=== PATIENT | male | born 1985 | race Caucasian/White ===

== ENCOUNTER 2024-05-09 19:44 | Emergency (ER) | payer BC, MEDICAID, SELFPAY ==
[2024-05-09 19:52] VITALS: BP 155/96; PULSE 92; RESP 18; TEMP 37; O2SAT 99
[2024-05-09] MEDS: TETANUS,DIPHTHERIA,AC PERTUSSIS ADULT (0.5 ML) BOOSTRIX IM (20:12)
--- NOTE | 2024-05-09 20:13 | ED.GENADULT ---
HPI - General Adult General Chief complaint: Wound/Laceration Stated complaint: Laceration to Fingers Source: patient Mode of arrival: ambulatory Limitations: no limitations History of Present Illness HPI narrative: Patient presents for evaluation of laceration to the 4th digit of left hand that occurred yesterday around 0800. He accidentally cut himself with a serrated knife. Bleeding is now controlled. He is primarily right-handed. He is not diabetic. No fever, chills, nausea, vomiting, purulence from the affected area. He came in today for an assessment of the wound. He is not up-to-date on tetanus. Reports minimal pain in the affected area. Related Data Allergies Allergy/AdvReac Type Severity Reaction Status Date / Time codeine Allergy Intermediate Verified 02/24/12 13:23 No Known Allergies Allergy Unverified 03/15/14 17:06 Review of Systems Review of Systems: CONSTITUTIONAL: Denies fever, chills, or sweats. EYES: Denies visual changes, redness, or discharge. ENT: Denies rhinorrhea, congestion, sore throat, or otalgia. CARDIOVASCULAR: Denies chest pain, palpitations, or edema. RESPIRATORY: Denies cough or dyspnea. GASTROINTESTINAL: Denies abdominal pain, nausea, vomiting, or diarrhea. GENITOURINARY: Denies dysuria or hematuria. SKIN: Reports laceration to 4th digit of the left hand MUSCULOSKELETAL: Reports pain in the 4th digit of the left hand at the site of the laceration. Denies pain otherwise. NEUROLOGIC: Denies headache, numbness, dizziness, or weakness. PSYCHIATRIC: Denies anxiety or depression. [facility] Past Medical History Medical History No pertinent past medical history Surgical History Surgical History No pertinent past surgical history Family History Family History Sibling Patient's brother is Family history of drug dependence Grandparent Cerebrovascular accident, Onset Age: 87 Diabetes mellitus, Onset Age: 87 Father Malignant neoplasm of prostate, Onset Age: 57 Mother Family history of malignant neoplasm of ovary, Onset Age: 46 Other Family history of cardiovascular disease Social History Social History Second hand tobacco smoke exposure: Yes Alcohol intake: never Substance use: never Gender identity (if verbalized by the patient): Male Spiritual care concerns: No Exam Narrative: GENERAL: Well-appearing, well-nourished, and in no acute distress. HEAD: Normocephalic, atraumatic. EYES: PERRLA and EOMI. ENT: Nares clear, no rhinorrhea or epistaxis. Mucous membranes moist. Oropharynx without tonsillar hypertrophy exudate or other lesions. Bilateral TMs pearly giordano nonbulging NECK: Supple. No adenopathy or masses. No carotid bruits or JVD CHEST: Clear to auscultation. No respiratory distress. No wheezes rales or rhonchi HEART: Regular rate and rhythm. No murmur heard. Normal peripheral pulses. ABDOMEN: Soft, nontender, nondistended, normal active bowel sounds. EXTREMITIES: Normal range of motion. No edema. SKIN: There is a 2.5 cm linear laceration in a transverse formation to the proximal phalanx of the 4th digit of the left hand, primarily involving the lateral aspect of that digit. There is no active bleeding. Bed is pink. Hands are soiled in dirty NEURO: No focal deficits. Alert and oriented x3. PSYCH: Normal mood and affect. Course Course Emergency Course: This is a 38-year-old male who presented for evaluation of a laceration to the 4th digit of the left hand. Wound was thoroughly cleaned with hydrogen peroxide, Betadine, and saline. Wound was dressed. Tetanus was updated. Discharge with cephalexin. Monitor for signs of infection. Advised on wound care. Follow-up with primary provider. Go to
== END 2024-05-09 20:20 | disposition home or self-care (01) ==
PROVIDERS: Emergency Provider Nurse Practitioner
DX: S61.215A Laceration without foreign body of left ring finger without damage to nail, initial encounter (principal); W26.0XXA Contact with knife, initial encounter; Z23 Encounter for immunization
CPT/HCPCS: 90471; 90715; 99213; G0463